=== PATIENT | female | born 2005 | race African-American/Black ===

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

== ENCOUNTER → 2025-02-10 | Outpatient (CLI) | payer BC, OTHER ==
[~2025-02-10] MED LIST changes: -IBUP-1022 PO; +IBUP600T42 PO
== END ==
LOC: M RAD 10:20 → M LAB 10:20
PROVIDERS: ATTEND Registered Nurse
DX: J20.9 Acute bronchitis, unspecified (principal); R05.9 Cough, unspecified